=== PATIENT | female | born 1960 | race Caucasian/White ===

== ENCOUNTER 2019-04-23 10:01 | Outpatient (RCR) | payer OTHER, SELFPAY ==
[2019-02-24 09:37] LABS: INR 1.2
[2019-02-25 10:09] LABS: INR 1.3
[2019-02-26 10:57] LABS: INR 1.5; Prothrombin Time 15.8 Seconds (9.64-11.0)
[2019-02-27 11:31] LABS: INR 1.8; Prothrombin Time 18.7 Seconds (9.64-11.0)
[2019-03-03 11:39] LABS: INR 2.3; Prothrombin Time 24.6 Seconds (9.64-11.0)
[2019-03-09 12:33] LABS: Prothrombin Time 55.5 Seconds (9.64-11.0)
[2019-03-09 12:50] LABS: INR 5.3
[2019-03-16 10:15] LABS: INR 2.1; Prothrombin Time 22.5 Seconds (9.64-11.0)
[2019-04-07 11:59] LABS: Prothrombin Time 41.5 Seconds (9.64-11.0)
[2019-04-13 11:49] LABS: INR 1.7; Prothrombin Time 17.9 Seconds (9.64-11.0)
[2019-04-17 13:25] LABS: INR 2.3
[2019-04-20 11:41] LABS: INR 1.6; Prothrombin Time 16.7 Seconds (9.64-11.0)
[2019-04-23 10:19] LABS: INR 2.2; Prothrombin Time 23.5 Seconds (9.64-11.0)
== END 2019-05-25 23:59 | disposition home or self-care (01) ==
LOC: CHSLAB 10:01
PROVIDERS: PCP Family Medicine; Visit Provider Family Medicine
DX: Z86.79 Personal history of other diseases of the circulatory system (principal)
CPT/HCPCS: 36415; 85610

== ENCOUNTER 2019-06-23 11:47 | Outpatient (CLI) | payer OTHER, SELFPAY ==
[2019-06-23 12:02] LABS: Basophils Absolute Auto 0.03 K/mm3 (0.00-0.10); Basophils Percent Auto 0.7 % (0.0-1.0); Eosinophils Percent Auto 4.7 % (1.0-6.0); Hematocrit 38.5 % (35.0-49.0); Hemoglobin 11.9 g/dL (12.0-15.0); Immature Granulocyte Absolute 0.01 K/mm3 (0.00-0.00); Immature Granulocyte Percent A 0.2 % (0.0-0.0); Lymphocytes Absolute Auto 1.15 K/mm3 (1.10-4.50); Lymphocytes Percent Auto 26.9 % (18.0-42.0); Mean Corpuscular HGB Conc 30.9 g/dL (32.0-36.0); Mean Corpuscular Hemoglobin 29.2 pg (27.0-31.0); Mean Corpuscular Volume 94.6 fL (78.0-102.0); Mean Platelet Volume 9.6 fl (9.2-11.8); Monocytes Absolute Auto 0.45 K/mm3 (0.10-0.90); Monocytes Percent Auto 10.5 % (2.0-11.0); Neutrophils Absolute Auto 2.4 K/mm3 (1.7-7.2); Platelet Count Result 190 K/mm3 (150-420); Red Blood Count 4.07 M/mm3 (4.20-5.40); Red Cell Distribution Width 13.6 % (11.6-14.4); White Blood Count 4.3 K/mm3 (4.8-10.8)
== END 2019-06-23 11:48 | disposition home or self-care (01) ==
PROVIDERS: PCP Family Medicine
DX: D64.9 Anemia, unspecified (principal)
CPT/HCPCS: 36415; 85025

== ENCOUNTER 2019-08-06 09:41 | Outpatient (RCR) | payer OTHER, SELFPAY ==
[2019-06-30 13:05] LABS: INR 1.3; Prothrombin Time 13.4 Seconds (9.64-11.0)
[2019-07-09 11:12] LABS: INR 3.1; Prothrombin Time 30.5 Seconds (9.64-11.0)
[2019-07-16 18:56] LABS: INR 1.7; Prothrombin Time 17.1 Seconds (9.64-11.0)
[2019-07-23 12:57] LABS: INR 1.9; Prothrombin Time 19.5 Seconds (9.64-11.0)
[2019-07-30 16:26] LABS: INR 1.8; Prothrombin Time 18.1 Seconds (9.64-11.0)
[2019-08-06 10:21] LABS: INR 1.7; Prothrombin Time 17.2 Seconds (9.64-11.0)
== END 2019-09-28 23:59 | disposition home or self-care (01) ==
LOC: CHSLAB 09:41
PROVIDERS: PCP Family Medicine; Visit Provider Family Medicine
DX: Z86.79 Personal history of other diseases of the circulatory system (principal)
CPT/HCPCS: 36415; 85610

== ENCOUNTER 2019-11-24 12:46 | Outpatient (RCR) | payer OTHER, SELFPAY ==
[2019-11-24 13:30] VITALS: BP 117/77; PULSE 90; RESP 16; O2SAT 98; BMI 24.1
== END 2020-02-22 15:33 | disposition home or self-care (01) ==
PROVIDERS: PCP Family Medicine; Visit Provider Internal Medicine Interventional Cardiology
DX: Z95.4 Presence of other heart-valve replacement (principal)
CPT/HCPCS: 93798

== ENCOUNTER 2019-12-10 07:54 | Outpatient (CLI) | payer OTHER, SELFPAY ==
--- NOTE | 2019-12-10 08:10 | ECHO_ITS ---
Patient Info Name: Yesi Grayson Age: 59 years : 1960 Gender: Female Ht: 66 in Wt: 139 lbs BSA: 1.72 m2 HR: 71 bpm BP: 113 / 56 mmHg Heart Rhythm: Sinus Rhythm Technical Quality: Good Exam Date: 12/10/2019 8:13 AM Exam Location: [facility] Patient Status: Outpatient Admit Date: 12/10/2019 Staff Ordering Physician: Ita Moreno Receiving Supervisor: Elisabeth Espinoza RDCS Attending Provider: PHYSICIAN NOT ON STAFF, NONSTAFF Exam Type: CA echo doppler color flow Study Info Indications Z95.2 - Presence of prosthetic heart valve Complete two-dimensional, color flow and Doppler transthoracic echocardiogram is performed. Strain analysis performed. History/Risk Factors Hypertension: No Dyslipidemia: No Congenital Heart Disease (CHD): Yes Myocardial Infarction (AR): No Chronic Lung Disease: No Obesity: No Renal Disease: No Congestive Heart Failure (CHF): No Diabetes Mellitus: No COPD: No Tobacco Use: Never Family History: Diabetes Mellitus, Coronary Artery Disease DVT Treatment: Warfarin Deep Vein Thrombosis (DVT): Chronic Dialysis: None Frailty Scale (CSHA): 2: Well Cardiac Arrest: No Prior Interventions Pacemaker: Yes Valve Surgery: Yes Type of Valve Surgery: TV Mechanical Replacement Summary 1. Complete two-dimensional, color flow and Doppler transthoracic echocardiogram is performed. 2. Left ventricular chamber dimension is normal. 3. Left ventricular systolic function is normal, estimated at 60-65%. 4. The left ventricular diastolic function is abnormal. 5. E/e' 11 is mildly elevated. 6. Global longitudinal strain is abnormal at -15.8%. 7. Linear artifact in right ventricle suggestive of catheter(s), pacemaker lead(s), or ICD lead(s). 8. Right ventricular systolic function is reduced and with TAPSE 0.6 cm.. 9. Right ventricular chamber dimension is moderately enlarged. 10. Left atrial chamber dimension is severely enlarged. 11. Right atrial chamber dimension is severely enlarged. 12. Linear artifact in the right atrium suggestive of catheter(s), pacemaker lead(s), or ICD lead(s). 13. Bowing of interatrial septum to right atrium. 14. There is trace aortic valve regurgitation. 15. There is eccentric moderate mitral valve regurgitation. 16. Bioprosthetic tricuspid valve noted with normal function. 17. There is trace pulmonic regurgitation. Left Ventricle E/e' 11 is mildly elevated. Global longitudinal strain is abnormal at -15.8%. Left ventricular chamber dimension is normal. Left ventricular systolic function is normal, estimated at 60-65%. The left ventricular diastolic function is abnormal. Right Ventricle Linear artifact in right ventricle suggestive of catheter(s), pacemaker lead(s), or ICD lead(s). Right ventricular systolic function is reduced and with TAPSE 0.6 cm.. Right ventricular chamber dimension is moderately enlarged. Left Atria Left atrial chamber dimension is severely enlarged. Right Atria Linear artifact in the right atrium suggestive of catheter(s), pacemaker lead(s), or ICD lead(s). Right atrial chamber dimension is severely enlarged. Atrial Septum Bowing of interatrial septum to right atrium. Aortic Valve The aortic valve is trileaflet. There is no aortic valve stenosis. There is trace aortic valve regurgitation. Pulmonic Valve There is trace pulmonic regurgitation. Mitral Valve There is eccentric moderate mi
== END 2019-12-10 07:55 | disposition home or self-care (01) ==
LOC: CHSIMG 07:57
PROVIDERS: PCP Family Medicine
DX: Z95.4 Presence of other heart-valve replacement (principal)
CPT/HCPCS: 93306

== ENCOUNTER 2020-01-18 11:39 | Outpatient (CLI) | payer OTHER, SELFPAY ==
--- NOTE | 2020-01-18 11:50 | ECG_ITS ---
Measurements Intervals [place] Rate: 74 P: AL: 0 QRS: 267 QRSD: 174 T: 102 QT: 440 QTc: 491 Interpretive Statements ELECTRONIC VENTRICULAR PACEMAKER VENTRICULAR PREMATURE COMPLEXES BASELINE ARTIFACT- I NO FURTHER INTERPRETATION IS POSSIBLE ATYPICAL ECG Electronically Signed On 01-18-2020 12:31:40 CDT by Hakan Knott D.O.
== END 2020-01-18 11:40 | disposition home or self-care (01) ==
LOC: CHSCARD 11:41
PROVIDERS: PCP Family Medicine; Visit Provider Family Medicine
DX: Z95.2 Presence of prosthetic heart valve (principal)
CPT/HCPCS: 93005

== ENCOUNTER 2020-01-25 12:02 | Outpatient (CLI) | payer OTHER, SELFPAY ==
[2020-01-25 22:56] LABS: SARS-CoV-2 RNA PCR Negative
== END 2020-01-25 12:03 | disposition home or self-care (01) ==
PROVIDERS: PCP Family Medicine
DX: Z20.828 Contact with and (suspected) exposure to other viral communicable diseases (principal); Z01.812 Encounter for preprocedural laboratory examination
CPT/HCPCS: 87635; C9803; U0003

== ENCOUNTER 2020-04-12 11:01 | Outpatient (RCR) | payer OTHER, SELFPAY ==
--- NOTE | 2020-04-12 12:05 | PTOPEVAL ---
Thank you for referring Yesi Grayson to [facility].? The patient is scheduled to be seen for therapy? ____x/week for ___ weeks. Please review, sign, date and return this plan of care HALEY. I agree with and certify that the following plan of care is medically necessary. Referring Physician Date Admitting Provider: Attending Provider: Leodan Brgigs, Referring Provider: *PT Outpatient Evaluation Start: 04/12/20 11:14 Freq: Status: Active Protocol: Document 04/12/20 11:15 [facility] (Rec: 04/12/20 12:04 [facility] [id number]) Therapy Assessment Status Assessment Status Assessment Status Evaluation Outpatient Past Medical History Neurological History Hx Neurological Disorders No Significant History Cardiovascular History Hx Atrial Fibrillation Yes Hx Cardiac Catheterization Yes Hx Cardiac Surgery Yes Hx Cardiomyopathy Yes Hx Congenital Heart Disease Yes: CRISTO FLOWER Hx Congestive Heart Failure Yes: 03/2019 EF 55% Hx Mitral Valve Prolapse Yes Hx Pacemaker Yes: BIVENTRICULAR Hx Valve Replacement Yes: TRICUSPID X4 04/29/19 Respiratory History Hx Respiratory Disorders No Significant History Gastrointestinal History Hx Gastrointestinal Disorders No Significant History Genitourinary History Hx Genitourinary Disorders No Significant History Musculoskeletal History Hx Musculoskeletal Disorders No Significant History Hematological History Hx Anemia Yes: IRON DEFICIENCY Hx Blood Transfusions Yes Endocrine History Hx Endocrine Disorders No Significant History HEENT History Hx HEENT Disorders No Significant History Integumentary History Hx Skin Disorders No Significant History Reproductive History Hx Abnormal Uterine Bleeding Yes Hx Section Yes Hx Hysterectomy Yes Hx Tubal Ligation Yes Psychosocial History Hx Psychiatric Disorders No Significant History Pain History History of Any Previous or Ongoing No Significant History Instance of Pain Anesthesia History Hx Anesthesia Reactions No Significant History Other History Hx Cancer Yes: UTERINE 2013 Hx Radiation Therapy Yes: 2013 UTERINE Evaluation Information Problem Diagnosis L shoulder pain, adhesive capsulitis Onset 04/06/20 Additional Evaluation Detail quick dash = 34% Subjective Information patient reports she has been Query Text:As Reported By Patient/ having tightness and decreased Family mobility in the L shoulder with some associated pain with positional changes. she
--- NOTE | 2020-04-14 13:17 | PCPTNOTE ---
04/14/19-pt called to cancel her appointment for today and tomorrow stating she has to go out of town, and will call back next week to schedule-HM
--- NOTE | 2020-05-10 08:19 | PCPTNOTE ---
05/10/20 - patient has not been to therapy in several weeks. she has been called with no plan to return to her POC. as of this date, she will be dc'd from skilled PT services and all progress towards goals will be taken from her most recent evaluation/note. SHELDON
== END 2020-04-12 18:00 | disposition home or self-care (01) ==
LOC: CHSPT 11:01
PROVIDERS: PCP Family Medicine; Visit Provider Family Medicine
DX: M25.512 Pain in left shoulder (principal)
CPT/HCPCS: 97110; 97161

== ENCOUNTER 2022-08-23 16:23 | Outpatient (RCR) | payer OTHER, SELFPAY ==
--- NOTE | 2022-08-23 17:35 | BUOTOPEVAL ---
Assessment and note entered by Rachel Knapp, OT Evaluation Information Assessment Status Evaluation Diagnosis L arm weakness Onset 06/22/22 Subjective Information Patient reports the following: she has had mixed interpretations on what caused her recent L UE weakness, CVA vs nerve damage from, surgery. Patient went in for open heart surgery for replacement of her mitral valve on 06/22/22 and upon awakening from surgery she had L UE edema and paralysis. Patient has been having home health occupational therapy and has had a lot of progression in functional use of the L UE. Patient continues to struggle to manipulate her fingers which affects all fine motor activities including playing the piano and sewing/quilting. She is able to sisal picker items using her L hand however they have to be large. Anything that requires her to extend her L wrist is very painful . Patient also reports concerns with her L shoulder strength and feels that it is dropping. Patient reports no deficits in the L UE prior to surgery. Patient is right hand dominant however prefers to write with her left hand. Reported Pain Level Pain Score 0: Self Report Additional Pain Score Comments patient states that the only pain she has is when she extends her L wrist Assessment OT Clinical Summary Patient is a 62 year old female who presents with a diagnosis of left arm weakness following a CVA and open heart surgery on 06/22/22. Patient has been receiving home health occupational therapy services and exhibits good progress since onset however continues to demonstrate decreased strength and ROM throughout the proximal and distal L UE that is impacting her ability to reach , carry, grasp, and lift. Patient specifically mentions difficulties with fine motor skills impacting completion of IADLs, handwriting and ADLs. Skilled OT services are imperative in order to further facilitate L UE strength, ROM, coordination, appropriate adaptive equipment and sensation so patient is able to safely return to independence of ADLs, IADLs and hobbies. Plan of Care Interventions Therapeutic Exercise,Manual Therapy,Neuro Re- education,Therapeutic Activities,Hot Pack/Cold Pack,Self-Care/Home Management OT Services Indicated Yes Treatment Frequency and
--- NOTE | 2022-09-21 09:52 | OTOPPROG ---
Assessment and note entered by Joanne Magallanes, OT Evaluation Information Assessment Status Progress Assessment OT Clinical Summary The patient demonstrates significant progress in wool sorter strength, wrist ROM, wrist strength, and fine motor coordination affecting her ability to perform sewing and ADLs with increased accuracy and independence. The patient did not make progress in shoulder and elbow strength due to not being tested as patient has lifting restrictions, sensation, and pinch strength due to continued progress toward goals and limited ability to address shoulder ROM and strength due to recent surgery. The patient continues to demonstrate progress toward goals and requires continued OT services to improve function of L UE. Plan of Care Interventions Therapeutic Exercise,Manual Therapy,Neuro Re- education,Therapeutic Activities,Hot Pack/Cold Pack,Sensory Integrative Techn,Self-Care/Home Management OT Services Indicated Yes Treatment Frequency and 3x/week for 10 visits. Duration These treatments will address the objective and functional deficits as defined above. The patient will be advanced safely and appropriately in order for the patient to progress towards his/her prior level of function. Additional exercises will be introduced and as well as a comprehensive home exercise program upon discharge, if needed, ?to ensure carryover of functional gains achieved in the clinic. This treatment plan has been reviewed and agreement upon by the patient.
--- NOTE | 2022-10-12 10:52 | OTOPPROG ---
Assessment and note entered by Joanne Magallanes OT Evaluation Information Assessment Status Progress Subjective Information The patient stated she feels that she has improved a lot since the start of therapy stating that she used to have pain in R wrist and does not anymore . She reports that she uses her R hand more now and her shoulder has better range of motion. Assessment OT Clinical Summary The patient demonstrates significant improvement in taste tester strength, pinch strength, shoulder AROM, and UE strength affecting her ability to perform self care tasks and care for her household. The patient continues to demonstrate deficits in taste tester/ pinch strength, UE AROM, and fine motor coordination due to continued progress toward goals and need for further skilled services. The patient demonstrates good potential for improvement due to gains made at this time. The patient to continue with skilled OT 2x/week for 10 visits. Plan of Care Interventions Therapeutic Exercise,Manual Therapy,Neuro Re- education,Therapeutic Activities,Hot Pack/Cold Pack,Self-Care/Home Management OT Services Indicated Yes Treatment Frequency and 2x/week for 10 visits. Duration These treatments will address the objective and functional deficits as defined above. The patient will be advanced safely and appropriately in order for the patient to progress towards his/her prior level of function. Additional exercises will be introduced and as well as a comprehensive home exercise program upon discharge, if needed, ?to ensure carryover of functional gains achieved in the clinic. This treatment plan has been reviewed and agreement upon by the patient.
--- NOTE | 2022-12-28 10:00 | OTOPDC ---
Assessment and note entered by Joanne Magallanes, OT Evaluation Information Assessment Status Discharge Subjective Information The patient stated that she thinks she has made great progress since starting therapy. She stated that she wishes she could use her L hand like she can use her R hand but is happy with her improvement. Reported Pain Level Pain Score 0: Self Report Assessment OT Clinical Summary The patient demonstrates significant progress in UE AROM, sailing master strength, UE strength and overall function of L UE which has improved her ability to perform cooking, grooming, and sewing tasks. The patient continues to demonstrate deficits in pinch strength, sailing master strength, and fine motor coordination of L hand, the patient has been educated on UE HEP to continue to improve weakness and fine motor coordination as well as maintain level of function achieved at therapy. The patient is discharged at this time with HEP to continue and provided with caregiver education to maintain ROM of L shoulder. Plan of Care OT Services Indicated No
== END 2022-12-28 16:41 | disposition home or self-care (01) ==
LOC: CHSOT 16:23
PROVIDERS: PCP Family Medicine; Visit Provider Physician Assistant
DX: I63.9 Cerebral infarction, unspecified (principal)
CPT/HCPCS: 97110; 97112; 97140; 97165; 97530